=== PATIENT | female | born 1965 | race Caucasian/White ===

== ENCOUNTER 2024-01-19 10:21 | Emergency (ER) | payer OTHER, SELFPAY ==
[2024-01-19 10:23] VITALS: BP 153/112
[2024-01-19] MEDS: XYLOCAINE VISCOUS CUP 15 ML PO (12:30)
[2024-01-19] MEDS: MAALOX 30 ML PO (12:30)
[2024-01-19] MEDS: PEPCID 20 MG IV (12:30)
[2024-01-19 12:47] LABS: % Basophils 0.6 % (0-2); % Eosinophils 1.5 % (0-6); % Immature Granulocytes 0.1 % (0-0.5); % Lymphocytes 23.4 % (20.5-51.1); % Neutrophils 68.4 % (42.2-75.2); Absolute Basophils 0.1 10^3/uL (0-0.2); Absolute Eosinophils 0.2 10^3/uL (0-0.7); Absolute Lymphocytes 2.4 10^3/uL (1.2-3.4); Absolute Monocytes 0.6 10^3/uL (0.1-0.6); Hematocrit 44.2 % (37.0-47.0); Mean Corp Hgb Conc. 33.9 g/dL (33.0-37.0); Mean Corpuscular Volume 85.5 fL (81.0-99.0); Mean Platelet Volume 9.8 fL (7.4-10.4); Nucleated Red Blood Cells % 0 %; Platelet Count 284 10^3/uL (130-400); Red Blood Cell Count 5.17 10^6/uL (4.20-5.40); Red Cell Dist. Width 12.3 % (11.5-14.5); White Blood Cell Count 10.2 10^3/uL (4.8-10.8)
[2024-01-19 12:51] LABS: Urine Albumin Negative (Neg - Trace); Urine Bilirubin Negative (Negative); Urine Character Clear (Clear); Urine Color Yellow; Urine Glucose Negative (Negative); Urine Ketone Negative (Negative); Urine Leukocyte Negative (Negative); Urine Nitrite Negative (Negative); Urine Occult Blood Negative (Negative); Urine Urobilinogen Negative (Neg - 1+)
[2024-01-19 13:07] VITALS: BP 164/101
--- NOTE | 2024-01-19 13:20 | ED.GENMED ---
History of Present Illness
General
Chief Complaint: Abdominal Symptoms
Time Seen by Provider: 01/19/24 11:16
History of Present Illness
History of Present Illness:
58-year-old female without significant past medical history presenting to the emergency department for upper abdominal pain. Patient reports symptoms started yesterday with associated nausea. She reports that she has had similar symptoms in the
past, however has always resolved on its own. Reports history of , otherwise no abdominal surgeries. Denies any chest pain or difficulty breathing. Denies known issues with her gallbladder. Is unsure if symptoms are associated with
food, however did have cheese and then symptoms started. Denies any complaints. Denies any fever. Denies additional acute medical complaints.
Past History
Past History
ED Past Medical History: Psychiatric (ADHD, Depression) and Other (MVP)
ED Past Surgical History:
Social History
Tobacco: Former smoker
Alcohol: Occasional
Drug: None
Personal:
Living: with family
Employment: Employed
Family History
Family History: Other (Noncontributory)
Phy Exam
Physical Exam
Physical Exam:
General: Well-appearing, no clinical signs of dehydration, nontoxic and in no acute distress
HEENT: protecting airway
Neck: appears supple
CV: Normal heart rate, regular rhythm, no evidence of cyanosis
Resp: No accessory muscle use, no increased work of breathing, lungs clear to auscultation bilaterally
Abd: Soft and non-distended, focal tenderness to the epigastric abdomen and right upper quadrant without rebound or guarding
Extremities: No deformities, no swelling, no erythema
Neuro: alert, no focal neurologic deficit
: deferred
Rectal: deferred
Psych: Normal affect
Skin: Intact
Course
Orders/Labs/Results
Orders:
Orders
01/19/24 11:58
Famotidine [Pepcid] 20 mg IV NOW STA
Mag Hydrox/Al Hydrox/Simeth [Maalox] 30 ml PO NOW STA
US Abdomen Complete/Upper Urgent
Reason For Exam: RUQ and epigastric pain
01/19/24 12:00
Viscous Lidocaine 2% [Xylocaine Viscous Cup] 15 ml PO ONCE ONE
01/19/24 12:35
Basic Metabolic Panel Urgent
Complete Blood Count/With Diff Urgent
Lipase Urgent
Urinalysis Reflex To Culture Urgent
Date Specimen was Collected: 01/19/24
Time Specimen was Collected: 12:33
01/19/24 14:02
Ketorolac [Toradol] 15 mg IV NOW STA
Abnormal Lab Results
01/19/24
12:35
Absolute Neuts (auto) 7.0 H 10^3/uL
(1.4-6.5)
Glucose 105 H mg/dl
(70-99)
01/19/24 12:35
01/19/24 12:35
Vital Signs
Initial and Last Documented VS:
Initial Vital Signs
Temp Pulse Resp BP Pulse Ox
98.4 F 82 18 153/112 97
01/19/24 10:23 01/19/24 10:23 01/19/24 10:23 01/19/24 10:23 01/19/24 10:23
Last Documented Vital Signs
Temp Pulse Resp BP Pulse Ox
98.5 F 75 18 164/101 98
01/19/24 14:14 01/19/24 14:14 01/19/24 10:23 01/19/24 13:07 01/19/24 14:14
MDM/Problems Addressed
MDM/Problems Addressed:
58-year-old female without significant past medical history presenting for upper abdominal pain. Vital signs on arrival are significant for hypertension.
On exam, patient is well-appearing, no acute distress or discomfort. Benign cardiac and pulmonary exam. On abdominal exam, focal tenderness to the epigastric and right upper quadrant abdomen. Differential considerations include GERD versus
gastritis versus pancreatitis versus cholelithiasis versus cholecystitis. Will treat with GI cocktail and obtain laboratory analysis and ultrasound imaging. Will reassess for improvement
15:00 -patient's labs unremarkable. Ultrasound is consistent with cholelithiasis without evidence of cholecystitis. On reassessment, patient is reporting symptom improvement. At this time, feel that she is stable for discharge with close interval
follow-up. Will provide information for outpatient surgery. Strict return precautions communicated and patient verbalized understanding
*Critical Care Note
Total Time (30-74mins, 75-104mins- exclusive of procedures): Not Applicable
ED Attending Note
-
Portions of this chart may have been created with voice recognition software.� Occasional wrong word or��sound alike� substitutions may have occurred due to the inherent limitations of voice recognition software.
Discharge Plan
Departure
Prescriptions:
No Action
Ativan
PO PRN PRN (Reason: prn)
methylphenidate HCl [Concerta] 36 MG tablet extended release 24hr
36 mg PO DAILY
Wellbutrin
PO DAILY
hydrocodone-acetaminophen 1 TABLET tablet
1 tab PO Q4HPRN PRN (Reason: severe pain) Qty: 12 0RF
metaxalone [Skelaxin] 800 MG tablet
800 mg PO TIDPRN PRN (Reason: muscle spasms/tightness) Qty: 12 0RF
Referrals:
Terell Smith DO [Family Provider] -
Interventions
Interventions:
*Risk Screen - Suicide Last Done: 01/19/24 10:23
*General Assessment Last Done: 01/19/24 10:23
*Neglect/Abuse Screening Last Done: 01/19/24 10:23
*ED COVID-19 Vaccine History Last Done: 01/19/24 10:23
[facility] Assessment Last Done: 01/19/24 13:56
Discharge Date and Time
Print Language: HEBREW
[2024-01-19 14:00] LABS: Blood Urea Nitrogen 17 mg/dl (7-17); Calcium 9.8 mg/dl (8.4-10.2); Carbon Dioxide 22 mmol/L (22-30); Chloride 105 mmol/L (98-107); Glucose 105 mg/dl (70-99); Lipase 99 U/L (23-300); Sodium 136 mmol/L (135-145); eGFR > 60.00
[2024-01-19] MEDS: TORADOL 15 MG IV (14:11)
[2024-01-19 14:14] VITALS: BMI 33.2
[2024-01-19 15:23] VITALS: BP 161/79
== END 2024-01-19 15:39 | disposition home or self-care (01) ==
LOC: EMR 10:21
PROVIDERS: EMERGENCY PHYSICIAN Student in an Organized Health Care Education/Training Program; FAMILY PHYSICIAN Internal Medicine Hospice and Palliative Medicine
DX: K80.20 Calculus of gallbladder without cholecystitis without obstruction (principal); F90.9 Attention-deficit hyperactivity disorder, unspecified type; F32.A Depression, unspecified; I34.1 Nonrheumatic mitral (valve) prolapse; I10 Essential (primary) hypertension; Z87.891 Personal history of nicotine dependence
CPT/HCPCS: 99284; 96374; 96375; 76700; 80048; 81003; 83690; 85025

== ENCOUNTER → 2024-02-17 08:58 | Day surgery (SDC) | payer OTHER, SELFPAY | LOC: SDSPAT 08:58 | PROVIDERS: ATTENDING PHYSICIAN Surgery; FAMILY PHYSICIAN Family Medicine | DX: Z01.810 Encounter for preprocedural cardiovascular examination (principal); K80.20 Calculus of gallbladder without cholecystitis without obstruction | CPT/HCPCS: 93005; 36415 ==

== ENCOUNTER 2024-02-20 06:24 | Day surgery (SDC) | payer OTHER, SELFPAY ==
--- NOTE | 2024-02-17 15:51 | PTCARENOTE ---
Abnormal EKG reviewed by Dr Mayes, no further action requested.
[2024-02-20 11:32] VITALS: BMI 32.5
[2024-02-20] MEDS: TYLENOL 1000 MG PO (11:40)
[2024-02-20] MEDS: NORMOSOL-R/PLASMALYTE-A 1000 IV (11:40)
[2024-02-20 15:35] VITALS: BP 138/66; BP 167/85
[2024-02-20] MEDS: ROXICODONE 5 MG PO (17:04)
== END 2024-02-20 17:48 | disposition home or self-care (01) ==
LOC: SDS 06:24
PROVIDERS: ATTENDING PHYSICIAN Surgery
DX: K80.10 Calculus of gallbladder with chronic cholecystitis without obstruction (principal)
CPT/HCPCS: 47563; 88304; 74300; 76000